=== PATIENT | female | born 1995 | race Hispanic/Latino ===

== ENCOUNTER 2017-05-26 14:47 | Emergency (ER) | payer MEDICAID, OTHER, SELFPAY ==
[2017-05-26] MEDS ORDERED: ONDANSETRON ODT 4 MG TAB ONE (15:35)
[2017-05-26] MEDS ORDERED: ACETAMINOPHEN 325 MG TAB ONE (16:49)
[2017-05-26 16:52] LABS: APPEARANCE,URINE Clear (CLEAR); BILIRUBIN,URINE Negative (NEGATIVE); COLOR,URINE Yellow (YELLOW); GLUCOSE, URINE (UA) Negative (NEGATIVE); KETONES,URINE 40 mg/dL (NEGATIVE); LEUKOCYTE ESTERASE ,URINE Negative (NEGATIVE); NITRATE,URINE Negative (NEGATIVE); OCCULT BLOOD,URINE Negative (NEGATIVE); PROTEIN,URINE Negative (NEGATIVE); UROBILINOGEN,URINE 0.2 mg/dL (0.2-1.0)
== END 2017-05-26 17:21 | disposition home or self-care (01) ==
LOC: EDH 14:47
DX: O99.611 Diseases of the digestive system complicating pregnancy, first trimester (principal); K52.9 Noninfective gastroenteritis and colitis, unspecified; Z3A.01 Less than 8 weeks gestation of pregnancy
CPT/HCPCS: 81003; 81025; 87804

== ENCOUNTER 2018-01-26 17:20 | Emergency (ER) | payer MEDICAID ==
[2018-01-26 18:57] LABS: APPEARANCE,URINE Clear (CLEAR); BILIRUBIN,URINE Negative (NEGATIVE); COLOR,URINE Yellow (YELLOW); GLUCOSE, URINE (UA) Negative (NEGATIVE); KETONES,URINE 15 mg/dL (NEGATIVE); LEUKOCYTE ESTERASE ,URINE Small (NEGATIVE); NITRATE,URINE Negative (NEGATIVE); OCCULT BLOOD,URINE Negative (NEGATIVE); PROTEIN,URINE Negative (NEGATIVE); UROBILINOGEN,URINE 0.2 mg/dL (0.2-1.0)
[2018-01-26 18:59] LABS: HCG,QUAL RESULT POSITIVE (NEGATIVE)
[2018-01-26 19:43] LABS: BACTERIA,URINE Rare /HPF (None Seen); RBC,URINE 0-1 /HPF (0-1)
[2018-01-26 19:44] LABS: SQUAMOUS EPITHELIAL CELL,UR Few /HPF (0-2)
== END 2018-01-26 19:34 | disposition home or self-care (01) ==
LOC: EDH 17:20
DX: O20.0 Threatened abortion (principal); O23.41 Unspecified infection of urinary tract in pregnancy, first trimester; Z3A.09 9 weeks gestation of pregnancy
CPT/HCPCS: 81001; 81025